=== PATIENT | female | born 2000 | race Hispanic/Latino ===

== ENCOUNTER → 2025-09-07 11:04 | Outpatient (CLI) | payer BC, SELFPAY ==
--- NOTE | 2025-09-07 11:06 | DI.US.S_ITS ---
PROCEDURE: US PELVIC COMPLETE INDICATIONS: PAIN. FAMILY HISTORY OF ENDOMETRIOSIS. TECHNIQUE: Real-time scanning was performed of the pelvic organs, with image documentation. Additional endovaginal scanning was necessary due to incomplete visualization of the adnexal and endometrial structures by transabdominal scanning. COMPARISON: None. FINDINGS: Uterus: Uterus is anteverted and normal in size at 5.8 x 3.2 x 3.1 cm. The myometrium is heterogeneous. The endometrium measures 5.2 mm combined thickness. IUD within the endometrium. Ovaries: The right ovary measures 2.5 x 2.4 x 1.4 cm, with a calculated ovarian volume of 4.3 cc. The left ovary measures 3.1 x 2.1 x 2.0 cm, with a calculated ovarian volume of 6.9 cc. The ovaries have a normal sonographic appearance. Less than 12 follicles can be seen in each ovary. No adnexal masses are seen. Other: No pathologic free abdominal or pelvic fluid. IMPRESSION: No endometriomas identified. We strive to produce accurate, complete, and clear reports of imaging services. To assist us in improving patient care, this report was composed using standard report templates and voice recognition software. Therefore, it may contain abnormal punctuation, insertions and/or omissions. Occasional wrong-word or sound-alike substitutions may occur. Though we review the report and make efforts to correct it, we do recommend that the report be read carefully in proper context to recognize any text inaccuracies. Dictated by: Arvin Ro M.D. on 09/07/2025 at 15:58 Approved by: Arvin Ro M.D. on 09/07/2025 at 15:59
== END ==
LOC: US 11:06
PROVIDERS: Referring Provider Student in an Organized Health Care Education/Training Program; Visit Provider Student in an Organized Health Care Education/Training Program
DX: R10.20 Pelvic and perineal pain unspecified side (principal); N94.6 Dysmenorrhea, unspecified
CPT/HCPCS: 76830; 76856

== ENCOUNTER → 2025-09-12 13:08 | Outpatient (CLI) | payer BC, SELFPAY ==
[2025-09-12 13:55] LABS: Hemoglobin A1C% w Est Avg Glu 5.2 % (4.0-6.0)
[2025-09-12 14:30] LABS: TSH w/ Reflex to FT4 2.61 uIU/mL (0.47-4.68)
== END ==
PROVIDERS: Referring Provider Student in an Organized Health Care Education/Training Program; Visit Provider Student in an Organized Health Care Education/Training Program
DX: L68.0 Hirsutism (principal)
CPT/HCPCS: 36415; 83036; 84403; 84443